=== PATIENT | male | born 1980 | race Caucasian/White ===

== ENCOUNTER 2016-09-01 20:58 | Inpatient (IN) | payer SELFPAY ==
[~2016-09-01] VITALS: Ht 167.6 cm; Wt 79.8 kg
[2016-09-01 21:11] VITALS: BP 135/87
--- NOTE | 2016-09-01 22:53 | NUR ---
TO ER BED 4
[2016-09-01] MEDS ORDERED: LORazepam 2 MG/ML VIAL IVP ONE ×2 (22:55→23:05)
[2016-09-01] MEDS ORDERED: LORazepam 1 MG TAB PO ONE (22:55)
[2016-09-01] MEDS ORDERED: NACL 0.9% 1,000 ML IV ONE (22:55)
--- NOTE | 2016-09-01 23:01 | NUR ---
Patient being evaluated by physician at bedside.
--- NOTE | 2016-09-01 23:20 | NUR ---
36Y/M PT. BIB TO ED WITH C/O ETOH. PT. HX. ALCOHOLISM, SEIZURE, STATES PT. HAD SEIZURE BEFORE ARRIVED ED. AAO X4 WITH EPISODE OF CONFUSION, UNABLE TO AMBULATE AT THIS TIME. SKIN WARM AND DRY. VSS, EPISODE OF TREMOR NOTED. NO S/SX OF DISTRESS AT THIS TIME. ER MD MADE AWARE OF PT. STATUS.
[2016-09-01 23:29] LABS: HEMATOCRIT 32.3 % (36-52); HEMOGLOBIN 9.8 g/dL (12.0-18.0); MEAN CORPUSCULAR HEMOGLOBIN 18 pg (27-31); MEAN CORPUSCULAR HGB CONC 30 g/dL (33-37); MEAN CORPUSCULAR VOLUME 60 fL (80-94); PLATELET COUNT (AUTO) 141 K/uL (140-450); RED CELL DISTRIBUTION WIDTH 19.6 % (11.6-13.7); WHITE BLOOD COUNT (AUTO) 5.3 K/uL (4.8-10.8)
[2016-09-01 23:44] LABS: ALBUMIN 3.7 g/dL (3.4-5.0); ANION GAP 14.4 (8-16); CALCIUM 7.7 mg/dL (8.5-10.1); CREATININE 0.6 mg/dL (0.7-1.3); POTASSIUM 3.4 mmol/L (3.5-5.1); TOTAL BILIRUBIN 0.8 mg/dL (0.0-1.0); TOTAL PROTEIN, SERUM 8.1 g/dL (6.4-8.2)
[2016-09-01 23:47] LABS: EOSINOPHILS % (MANUAL) 1 % (0-4); HYPOCHROMASIA 1+; LYMPHOCYTES % (MANUAL) 63 % (20-46); MONOCYTES % (MANUAL) 2 % (5-12); NEUTROPHILS % (MANUAL) 34 (43-65); TARGET CELLS 1+
--- NOTE | 2016-09-02 | NUR ---
Patient appears to be resting comfortably in bed. Vital Signs within normal limits. Respirations even and unlabored.
[2016-09-02 00:01] LABS: INR 1.1 (0.8-1.2); PROTHROMBIN TIME 10.9 secs (10.8-13.4)
[2016-09-02] MEDS ORDERED: LORazepam 1 MG TAB PO ONE (00:05)
[2016-09-02] MEDS: NACL 0.9% 1,000 ML IV SCH ×2 (01:17→17:57)
[2016-09-02] MEDS ORDERED: ONDANSETRON 4 MG/2 ML VIAL IM/IVP PRN (01:20)
[2016-09-02] MEDS ORDERED: DOCUSATE SODIUM 100 MG GELCAP PO PRN (01:20)
[2016-09-02] MEDS ORDERED: ACETAMINOPHEN 325 MG TAB PO PRN (01:20)
[2016-09-02] MEDS ORDERED: HYDROcodone/APAP 7.5/325 MG 1 TAB PO PRN (01:20)
[2016-09-02] MEDS ORDERED: MORPHINE SULFATE 2 MG/ML SYR IVP PRN (01:20)
--- NOTE | 2016-09-02 01:28 | NUR ---
Note leland in ED - 09/02/16 at 0219 by [facility] Patient will be admitted to care of . Admited to TELEMETRY. Will go to [id number]. Belongings list completed. Report to ANGELIC MALDONADO.
--- NOTE | 2016-09-02 01:28 | NUR ---
Patient will be admitted to care of . Admited to TELEMETRY. Will go to [id number]. Belongings list completed. Report to ANGELIC MALDONADO.
[2016-09-02 01:30] VITALS: BP 122/72
--- NOTE | 2016-09-02 01:30 | NUR ---
PATIENT ADMITTED WITH ALCOHOL INTOXICATION. PATIENT CURRENTLY ASLEEP WAS GIVEN ATIVAN IV IN ER PATIENT HAS OXYGEN AT 3L VIA NASAL CANNULA. TIFFANIE CAME WITH THE PATIENT. TIFFANIE WILL GIVE ME MEDICAL HISTORY AND INFORMATION.PATIENT WAS CHANGED TURNED AND REPOSITIONED PATIENT WAS VERY SOILED AND ALSO URINATED 900ML OF YELLOW URINE IN THE URINAL.PERICARE WAS GIVEN TO THE PATIENT.PATIENT SITUATED IN THE BED AND WAS COVERED.IS CURRENTLY ON ASPIRATION PRECAUTIONS,SEIZURE PRECAUTIONS, AND FALL PRECAUTIONS NO N/V NOTED AT THIS TIME.NO PAIN OR DISCOMFORT NOTED AT THIS TIME. STATES,"PATIENT HAS BEEN ALSO HAVING ABD PAIN FOR ABOUT FOUR DAYS STARTED HAVING ALCOHOL WITHDRAWALS AT HOME WITH UNCONTROLLABLE SHAKING, AND HAS BEEN VOMITING FOR MORE THAN THREE DAYS." PLAN OF CARE DISCUSSED WITH THE TIFFANIE WILL CONTINUE TO MONITOR.
--- NOTE | 2016-09-02 01:30 | NUR ---
Patient's Plan of Care was discussed and reviewed with MASONRY INSPECTOR: Xavier FARAH.
[2016-09-02] MEDS ORDERED: LORazepam 1 MG TAB PO SCH ×2 (02:05→05:00)
[2016-09-02] MEDS: LORazepam 1 MG TAB PO SCH ×3 (02:05→21:10)
--- NOTE | 2016-09-02 02:10 | NUR ---
PATIENT ASLEEP WILL CONTINUE TO MONITOR.
[2016-09-02 02:21] LABS: CHOL/HDL RATIO 1.9 (1-4.5); FREE T4 (FREE THYROXINE) 0.82 ng/dL (0.76-1.46); THYROID STIMULATING HORMONE 0.43 uIU/mL (0.34-3.74)
--- NOTE | 2016-09-02 04:20 | NUR ---
PATIENT IS CURRENTLY SLEEPING IN BED,IVF INFUSING WELL IV SITE PATENT.NO SZ ACTIVITY NOTED.PATIENT HOB RAISED CONTINUES TO BE ON ASPIRATION PREC, AND SZ PREC SIDERAILS ARE PADDED.HAS SCD'S TO BOTH LOWER EXTREMITIES.IVF INFUSING WELL IV SITE PATENT. WILL CONTINUE TO MONITOR.
[2016-09-02 06:02] LABS: ANION GAP 15.7 (8-16); CALCIUM 7.5 mg/dL (8.5-10.1); CARBON DIOXIDE 27.1 mmol/L (21-32); CREATININE 0.6 mg/dL (0.7-1.3); POTASSIUM 3.8 mmol/L (3.5-5.1)
[2016-09-02 06:15] LABS: MAGNESIUM 1.9 mg/dL (1.8-2.4); PHOSPHORUS 4.9 mg/dL (2.5-4.9)
[2016-09-02 06:40] VITALS: BP 130/70
--- NOTE | 2016-09-02 06:44 | NUR ---
PATIENT STABLE RESTING IN BED.PATIENT INFORMED THAT HE WILL NEED A URINALYSIS AND SPECIMEN CUP KEPT AT BEDSIDE FOR THE PATIENT WHENEVER HE IS READY VOID. TIFFANIE IS AT BEDSIDE AND SHE IS AWARE.IVF INFUSING WELL IV SITE PATENT.NO SEIZURE ACTIVITY DURING THE NIGHT NOTED.NO COMPLAINS OF ABDOMINAL PAIN AND NO COMPLAINS OF NAUSEA OR VOMITING.WILL CONTINUE TO MONITOR THE PATIENT.CALL LIGHT WITHIN REACH.
[2016-09-02] MEDS ORDERED: LORazepam 2 MG/ML VIAL IVP PRN (07:05)
--- NOTE | 2016-09-02 07:35 | NUR ---
PATIENT ENDORSED TO ANGELIC LOCKE AT BEDSIDE SHE WILL RESUME CARE OF THE PATIENT.
--- NOTE | 2016-09-02 07:36 | NUR ---
PT AWAKE AND ALERT, NO SIGNS OF ACUTE DISTRESS. BOWEL SOUNDS ACTIVE IN ALL 4 QUADRANTS. SKIN INTACT. IV PATENT AND ASYMPTOMATIC. AMBULATORY WITH STANDBY ASSIST. PATIENT DENIES PAIN AT THIS TIME. BED IN LOW POSITION WITH BILATERAL HALF SIDE RAILS UP, CALL LIGHT WITHIN REACH. RE-ORIENTED PATIENT TO HOSPITAL AND TO UNIT, PT VERBALIZED UNDERSTANDING.
[2016-09-02] MEDS: MULTIVITAMIN 1 TAB PO SCH (08:07)
[2016-09-02] MEDS: FOLIC ACID 1 MG TAB PO SCH (08:07)
[2016-09-02] MEDS: THIAMINE 100 MG TAB PO SCH (08:07)
[2016-09-02] MEDS: LORazepam 2 MG/ML VIAL IVP PRN ×2 (08:08→16:28)
--- NOTE | 2016-09-02 08:15 | NUR ---
PATIENT STATED FEELING SHAKY AND ANXIOUS, WILL ADMINISTER ATIVAN ORDERED.
[2016-09-02] MEDS ORDERED: ATI.5 PO (08:24)
--- NOTE | 2016-09-02 08:30 | NUR ---
PATIENT SEEN BY DR BRASWELL, STOOD BEDSIDE WITNESS FOR PATIENT PREFERRED CODE STATUS AND STOOL OCCULT EXAM.
[2016-09-02] MEDS ORDERED: FOLIC ACID 1 MG TAB PO SCH (09:00)
[2016-09-02] MEDS ORDERED: THIAMINE 200 MG/2 ML VIAL IM ONE (09:00)
[2016-09-02 09:08] LABS: APPEARANCE,URINE CLEAR (CLEAR); BILIRUBIN,URINE NEGATIVE (NEGATIVE); BLOOD, URINE NEGATIVE (NEGATIVE); COLOR,URINE YELLOW (YELLOW); LEUKOCYTE ESTERASE ,URINE NEGATIVE (NEGATIVE); NITRITE, URINE NEGATIVE (NEGATIVE); PH,URINE 5.5 (5.0-9.0); PROTEIN,URINE NEGATIVE (NEGATIVE); UGLUCOSE NEGATIVE (NEGATIVE); UROBILINOGEN,URINE 0.2 EU/dL (0.2 - 1)
[2016-09-02 09:18] LABS: AMPHETAMINE, URINE NEG. ng/ml (NEG <=1000); BARBITURATE, URINE NEG. ng/ml (NEG <=200); BENZODIAZEPINE, URINE NEG. ng/mL (NEG <=200); CANNABINOID, URINE NEG. ng/mL (NEG <=50); COCAINE, URINE POS. ng/mL (NEG <=300); OPIATE, URINE NEG. ng/mL (NEG <=2000); PHENCYCLIDINE SCREEN,URINE NEG. ng/mL (NEG <=25)
[2016-09-02 09:22] LABS: BACTERIA,URINE RARE /HPF (None Seen); RBC,URINE NONE SEEN /HPF (0-5); SQUAMOUS EPITHELIAL CELL,UR 0-3 (FEW) /LPF (0-3 (FEW)); WBC,URINE 0-2 /HPF (0-5)
--- NOTE | 2016-09-02 09:53 | NUR ---
PATIENT HAS BEEN SCREENED AND CATEGORIZED HIGH NUTRITION RISK. PATIENT WILL BE SEEN WITHIN 1-2 DAYS OF ADMISSION. 09/02/16-09/03/[address]
--- NOTE | 2016-09-02 11:06 | NUR ---
RECEIVED NEW LAB ORDERS FROM DR BRASWELL, NOTED, WILL CARRY OUT.
--- NOTE | 2016-09-02 11:23 | NUR ---
09/02/16 RD INITIAL ASSESSMENT COMPLETED PLEASE REFER TO NUTRITION ASSESSMENT UNDER CARE ACTIVITY FOR ESTIMATED NUTRITIONAL NEEDS. 1. CONTINUE REGULAR DIET 2. CONTINUE THIAMINE + FOLIC ACID SUPPLEMENTATION 1X/DAILY 3. RD TO FOLLOW-UP 3-5 DAYS; MODERATE RISK CONY IGLESIAS, ELIZABETH
[2016-09-02 12:00] VITALS: BP 123/70
--- NOTE | 2016-09-02 12:40 | NUR ---
PT VOMITED X1 200ML CLEAR VOMITUS. ADMINISTERED ZOFRAN PRN ORDERED WILL CONTINUE TO MONITOR
[2016-09-02 16:00] VITALS: BP 130/87
--- NOTE | 2016-09-02 19:34 | NUR ---
PT AWAKE AND ALERT, NO SIGNS OF ACUTE DISTRESS. ENDORSED TO APPLICATION SECURITY ARCHITECT NURSE FOR CONTINUITY OF CARE.
--- NOTE | 2016-09-02 20:00 | NUR ---
RECEIVED REPORT FROM CHARGE NURSE AWAKE AND ALERT. VISITOR IN. ABLE TO VERBALIZE WELL. NO SOB. DENIES ANY PAIN AT THIS TIME. PROVIDED WITH SANDWICH AND A DRINK RT PT. COMPLAINED WITHOUT DINNER . CALL LIGHT USE EXPLAINED AND CARE PLANS FOR THE NIGHT DISCUSSED WITH HIM. TELEMETRY MONITORING.
[2016-09-02 21:05] VITALS: BP 135/80
--- NOTE | 2016-09-02 22:00 | NUR ---
STILL AWAKE AND WATCHING TV. NO COMPLAINTS. ABLE TO VERBALIZE NEEDS WELL. A/O X 4. DENIES PAIN AT THIS TIME. CALL LIGHT WITH IN REACH.
--- NOTE | 2016-09-03 00:53 | NUR ---
SLEPT WELL UP TO THIS TIME. NO COMPLAINTS DONE. ON TELEMETRY MONITORING. NO SOB. NO RESTLESSNESS NOTED. CALL LIGHT WITH IN REACH.
[2016-09-03 00:57] VITALS: BP 128/72
[2016-09-03] MEDS: LORazepam 1 MG TAB PO SCH (04:18)
[2016-09-03 04:23] VITALS: BP 136/86
--- NOTE | 2016-09-03 04:35 | NUR ---
PT. NO NOTED VOMITING THIS SHIFT. NO COMPLAINTS DONE. TELEMETRY MONITORING. CALL LIGHT WITH IN REACH. A/O X 4. ROM X 4.
[2016-09-03 05:51] LABS: HEMATOCRIT 32.7 % (36-52); HEMOGLOBIN 9.8 g/dL (12.0-18.0); MEAN CORPUSCULAR HEMOGLOBIN 18 pg (27-31); MEAN CORPUSCULAR HGB CONC 30 g/dL (33-37); MEAN CORPUSCULAR VOLUME 60 fL (80-94); RED BLOOD CELL COUNT(AUTO) 5.44 MIL/uL (4.20-6.10); RED CELL DISTRIBUTION WIDTH 19.6 % (11.6-13.7)
[2016-09-03 06:04] LABS: ANION GAP 8.8 (8-16); CALCIUM 8.4 mg/dL (8.5-10.1); CARBON DIOXIDE 31.7 mmol/L (21-32); CREATININE 0.7 mg/dL (0.7-1.3); POTASSIUM 3.5 mmol/L (3.5-5.1)
[2016-09-03 06:42] LABS: PLATELET COUNT (AUTO) 152 K/uL (140-450)
[2016-09-03 06:49] LABS: BAND % (MANUAL) 2 % (0-8); EOSINOPHILS % (MANUAL) 2 % (0-4); LYMPHOCYTES % (MANUAL) 40 % (20-46); MONOCYTES % (MANUAL) 6 % (5-12); NEUTROPHILS % (MANUAL) 50 (43-65)
[2016-09-03 06:50] LABS: ANISOCYTOSIS 1+; HYPOCHROMASIA 1+; OVALOCYTES 1+; POIKILOCYTOSIS 1+; TARGET CELLS 1+
--- NOTE | 2016-09-03 07:20 | NUR ---
RECEIVED REPORT FROM ANGELIC ORTEGA. PT IS SLEEPING IN BED BUT EASILY AWAKEN, PT IS A/OX4, AMBULATORY, IV IS ON THE RT FA, PATENT, INTACT, FLUSHING WELL, SKIN IS INTACT, NO S/S OF RESPIRATORY DISTRESS OR DISCOMFORT NOTED, THERE ARE SOME HAND TREMORS NOTED, DISCUSSED PLAN OF CARE WITH PT, PT VERBALIZED UNDERSTANDING, SAFETY/FALL PRECAUTIONS ARE IN PLACE, CALL LIGHT IS WITHIN REACH, PATIENT'S GIRLFRIEND IS AT BEDSIDE, WILL CONTINUE TO MONITOR.
[2016-09-03 08:00] VITALS: BP 124/72
[2016-09-03 08:19] LABS: T4 (THYROXINE) 5.4 ug/dL (4.5-12.0)
[2016-09-03] MEDS: MULTIVITAMIN 1 TAB PO SCH (08:35)
[2016-09-03] MEDS: FOLIC ACID 1 MG TAB PO SCH (08:36)
[2016-09-03] MEDS: THIAMINE 100 MG TAB PO SCH (08:36)
--- NOTE | 2016-09-03 08:36 | NUR ---
DUE MEDICATIONS GIVEN, PT TOLERATED WELL, CALL LIGHT WITHIN REACH, WILL CONTINUE TO MONITOR.
[2016-09-03] MEDS ORDERED: ESCITALOPRAM 20 MG TAB PO SCH (09:00)
[2016-09-03] MEDS ORDERED: FERROUS SULFATE 325 MG TABEC PO SCH (09:00)
[2016-09-03] MEDS ORDERED: NICOTINE TRANSD SYS 14 MG/24 HR PATCH TD SCH (09:00)
[2016-09-03] MEDS ORDERED: LORA-478 PO (09:28)
[2016-09-03] MEDS ORDERED: BUS5 PO (09:33)
[2016-09-03] MEDS ORDERED: BUPR-10 PO (09:33)
[2016-09-03] MEDS ORDERED: LORA-476 PO (09:34)
[2016-09-03 09:46] LABS: TRANSFERRIN 333 mg/dL (200-370)
--- NOTE | 2016-09-03 10:05 | NUR ---
DISCHARGE INSTRUCTIONS GIVEN, ID WRIST BAND REMOVED, IV REMOVED, CATHETER TIP INTACT, PT STABLE UPON DISCHARGE ACCOMPANIED BY HIS GIRLFRIEND.
[2016-09-03 11:02] LABS: HEMOGLOBIN A1C 5.9 % (4.8-5.6)
[2016-09-03 22:19] LABS: FERRITIN 14 ng/mL (30-400)
== END 2016-09-03 10:06 | disposition home or self-care (01) | DRG 896 ==
LOC: MED 20:58 → MTU 09-02 01:25
PROVIDERS: ADMIT Student in an Organized Health Care Education/Training Program; ATTEND Student in an Organized Health Care Education/Training Program
DX: F10.229 Alcohol dependence with intoxication, unspecified (principal); G92 Toxic encephalopathy; F33.9 Major depressive disorder, recurrent, unspecified; G40.509 Epileptic seizures related to external causes, not intractable, without status epilepticus; F10.239 Alcohol dependence with withdrawal, unspecified; F17.200 Nicotine dependence, unspecified, uncomplicated; E83.51 Hypocalcemia; R74.0 Nonspecific elevation of levels of transaminase and lactic acid dehydrogenase [LDH]; D50.9 Iron deficiency anemia, unspecified; F14.10 Cocaine abuse, uncomplicated; E78.00 Pure hypercholesterolemia, unspecified; F41.1 Generalized anxiety disorder; R03.0 Elevated blood-pressure reading, without diagnosis of hypertension; Y90.8 Blood alcohol level of 240 mg/100 ml or more; Z83.3 Family history of diabetes mellitus; Z82.3 Family history of stroke; Z82.49 Family history of ischemic heart disease and other diseases of the circulatory system
CPT/HCPCS: 36415; 80048; 80053; 80305; 81001; 82150; 82728; 82977; 83036; 83540; 83690; 83735; 83880; 84100; 84436; 84439; 84443; 84479; 85025; 85045; 85610; 85730; 87081; 96361; 96374; 99285; G0482; J2060; J2405; J7030